=== PATIENT | female | born 1965 | race Hispanic/Latino ===

== ENCOUNTER 2025-08-03 12:09 | Emergency (ER) | payer OTHER ==
--- OUTSIDE RECORDS SUMMARY | 2025-08-03 12:13 | XMS REPORT | Continuity of Care Document ---
Author Name Unknown Address [address] [facility] [place] [address] [facility] [place] Address [address] [facility] [place] [address] Care Team Providers Care Chemic Mangler Name Role Phone Jv Campbell Attending Clinician Unavailable Jewels Tse Attending Clinician Unavailable Payers Payer Name Policy Type Policy Number Effective Date Expirati on Date Source [facility] Individual Exchange Benefit Plan [id number] 2024 00:00:00 2025 00:00:00 [facility] Problems Condition Name Condition Details Condition Category Status Onset Date Resolution Date Last Treatment Date Treating Clinician Comments Source Hemorrhoid s Hemorrhoid s Problem Active 12-18 00:00: 00 [facility] Atrophic vaginitis Atrophic Vaginitis Problem Active 12-18 00:00: 00 [facility] Hypothyroi dism Hypothyroi dism Problem Active 12-18 00:00: 00 [facility] Superficia l pain on intercours e Superficia l Pain on Intercours e Problem Active 12-18 00:00: 00 [facility] [id number] Overweight Problem Com [facility] [id number] Vitamin D deficiency Problem [facility] [id number] Acquired hypothyroi dism Problem [facility] [id number] Mixed hyperlipid emia Problem [facility] Social History Social Habit Start Date Stop Date Quantity Comments Source History of Tobacco Use [facility] Sex Assigned At [facility] Smoking Status Start Date Stop Date Source Never Smoker [facility] Medications Ordered Medication Name Filled Medication Name Start Date Stop Date Current Medication? Ordering Clinician Indication Dosage Frequency Signature (SIG) Comments Components Source Zepbound 2.5 mg/0.5 mL subcutaneou s solution 0.5 {ml}s by sub-q route. Zepbound 2.5 mg/0.5 mL subcutaneou s solution 0.5 {ml}s by sub-q route. 2 00:00: 00 No .5{ml} Zepbound 2.5 mg/0.5 mL subcutaneo us solution 0.5 {ml}s by sub-q route. [facility] Vitamin D3 125 mcg (5,000 unit) tablet 1 unit every day by oral route. Vitamin D3 125 mcg (5,000 unit) tablet 1 unit every day by oral route. 1 00:00: 00 No 1unit(s ) Q1D Vitamin D3 125 mcg (5,000 unit) tablet 1 unit every day by oral route. [facility] Levothyroxi ne Sodium 100 MCG Levothyroxi ne Sodium 100 MCG No QD Levothyrox ine Sodium 100 MCG Zepbound 10 MG/0.5ML Zepbound 10 MG/0.5ML No .5{ml} Zepbound 10 MG/0.5ML ondansetron HCl 8 mg tablet TAKE ONE (1) TABLET(S) BY MOUTH TWICE A DAY NEEDED FOR NAUSEA AND VOMITING. ondansetron HCl 8 mg tablet TAKE ONE (1) TABLET(S) BY MOUTH TWICE A DAY NEEDED FOR NAUSEA AND VOMITING. No ondansetro n HCl 8 mg tablet TAKE ONE (1) TABLET(S) BY MOUTH TWICE A DAY NEEDED FOR NAUSEA AND VOMITING. [facility] levothyroxi ne 112 mcg tablet levothyroxi ne 112 mcg tablet No levothyrox ine 112 mcg tablet [facility] Yuvafem 10 mcg vaginal tablet Insert 1 tablet twice a week by vaginal route for 28 days. Yuvafem 10 mcg vaginal tablet Insert 1 tablet twice a week by vaginal route for 28 days. No 1 Q3.5D Yuvafem 10 mcg vaginal tablet Insert 1 tablet twice a week by vaginal route for 28 days. [facility] Immunizations Ordered Immunization Name Filled Immunization Name Date Status Comments Source Boostrix (Tdap) Boostrix (Tdap) Unknown Completed [facility] Boostrix (Tdap) Boostrix (Tdap) Unknown Completed [facility] Tdap Tdap Unknown Completed [facility] ical Vital Signs Vital Name Observation Time Observation Value Comments S ilya height 2025-06-23 13:30:00 64.00 [in_i] Com [facility] weight 2025-06-23 13:30:00 148 [lb_av] Comm on [facility] bmi 2025-06-23 13:30:00 25.4 kg/m2 Comm n [facility] blood pressure systolic 2025-06-23 13:30:00 121 mm[Hg] [facility] blood pressure diastolic 2025-06-23 13:30:00 75 mm[Hg] [facility] height 2025-03-20 08:15:00 64.00 [in_i] Com [facility] weight 2025-03-20 08:15:00 148 [lb_av] Comm on [facility] bmi 2025-03-20 08:15:00 25.4 kg/m2 Commo n [facility] blood pressure systolic 2025-03-20 08:15:00 106 mm[Hg] Common [facility] blood pressure diastolic 2025-03-20 08:15:00 73 mm[Hg] [facility] Height 2025-01-30 00:00:00 63 [in_i] [facility] BMI (Body Mass Index) 2025-01-30 00:00:00 27.5 kg/m2 [facility] BP Systolic 2025-01-30 00:00:00 119 mm[Hg] [facility] Body Weight 2025-01-30 00:00:00 155 [lb_av] [facility] BP Diastolic 2025-01-30 00:00:00 82 mm[Hg] [facility] height 2024-12-02 08:00:00 64.00 [in_i] Com [facility] weight 2024-12-02 08:00:00 160 [lb_av] Comm on [facility] bmi 2024-12-02 08:00:00 27.46 kg/m2 Comm on [facility] blood pressure systolic 2024-12-02 08:00:00 115 mm[Hg] [facility] blood pressure diastolic 2024-12-02 08:00:00 78 mm[Hg] Common [facility] height 2024-09-01 08:15:00 64.00 [in_i] Com [facility] weight 2024-09-01 08:15:00 145 [lb_av] Comm on [facility] bmi 2024-09-01 08:15:00 24.89 kg/m2 Comm on [facility] blood pressure systolic 2024-09-01 08:15:00 123 mm[Hg] [facility] blood pressure diastolic 2024-09-01 08:15:00 75 mm[Hg] Common [facility] height 2024-04-29 10:10:00 64.00 [in_i] Com [facility] weight 2024-04-29 10:10:00 145 [lb_av] Comm on [facility] bmi 2024-04-29 10:10:00 24.89 kg/m2 Comm on [facility] blood pressure systolic 2024-04-29 10:10:00 110 mm[Hg] Common [facility] blood pressure diastolic 2024-04-29 10:10:00 76 mm[Hg] Common [facility] height 2024-04-29 10:10:00 64.00 [in_i] Com [facility] weight 2024-04-29 10:10:00 145 [lb_av] Comm on [facility] bmi 2024-04-29 10:10:00 24.89 kg/m2 Comm on [facility] blood pressure systolic 2024-04-29 10:10:00 110 mm[Hg] [facility] blood pressure diastolic 2024-04-29 10:10:00 76 mm[Hg] Common Sp[facility] Height 2024-04-04 00:00:00 63 [in_i] [facility] BP Systolic 2024-04-04 00:00:00 118 mm[Hg] [facility] BP Diastolic 2024-04-04 00:00:00 78 mm[Hg] [facility] Body Weight 2024-04-04 00:00:00 149.2 [lb_av] [facility] BMI (Body Mass Index) 2024-04-04 00:00:00 26.4 kg/m2 [facility] height 2024-01-25 08:00:00 64.00 [in_i] Com mon [facility] weight 2024-01-25 08:00:00 142.0 [lb_av] Co mmon [facility] temperature 2024-01-25 08:00:00 97.3 [degF] Com mon [facility] bmi 2024-01-25 08:00:00 24.37 kg/m2 Comm on [facility] oximetry 2024-01-25 08:00:00 99 % Commo n [facility] respiratory rate 2024-01-25 08:00:00 18 /min Common [facility] blood pressure systolic 2024-01-25 08:00:00 122 mm[Hg] [facility] blood pressure diastolic 2024-01-25 08:00:00 71 mm[Hg] [facility] Height 2023-12-18 00:00:00 63 [in_i] [facility] BMI (Body Mass Index) 2023-12-18 00:00:00 25 kg/m2 [facility] BP Diastolic 2023-12-18 00:00:00 77 mm[Hg] [facility] BP Systolic 2023-12-18 00:00:00 118 mm[Hg] [facility] Body Weight 2023-12-18 00:00:00 141.2 [lb_av] [facility] height 2023-11-30 14:00:00 64.00 [in_i] Com mon [facility] weight 2023-11-30 14:00:00 141.6 [lb_av] Co mmon [facility] temperature 2023-11-30 14:00:00 98.2 [degF] Com [facility] bmi 2023-11-30 14:00:00 24.3 kg/m2 Commo n [facility] oximetry 2023-11-30 14:00:00 100 % Commo n [facility] respiratory rate 2023-11-30 14:00:00 17 /min [facility] blood pressure systolic 2023-11-30 14:00:00 122 mm[Hg] [facility] blood pressure diastolic 2023-11-30 14:00:00 73 mm[Hg] [facility] Procedures Procedure Date / Time Performed Performing Clinicia n Source SCREENING DIGITAL BREAST TOMOSYNTHESIS BI 2025-01-30 00:00:00 [facility] MAMMO, screening, digital, bilateral 2023-12-18 00:00:00 [facility] Procedure on Back 2006-10-22 00:00:00 [facility] Encounters Start Date/Time End Date/Time Encounter Type Admission Type Attending Clinicians Care Facility Care Department Encounter ID Source 2024-11-14 14:16:[facility] [id number] [facility] 2024-08-28 13:27:00 [facility] [id number] [facility] 2024-03-27 15:43:00 [facility] [id number] [facility] 2024-03-14 17:07:00 Outpatient Jv Campbell [facility] [id number] [facility] 2024-01-09 14:23:00 Outpatient Jv Campbell [facility] [id number] [facility] 2023-11-30 13:10:01 Outpatient Jewels Tse [facility] [id number] [facility] 2025-06-23 00:00:00 2025-06-23 00:00:00 OFFICE VISIT ESTAB PT LEVEL 4 [facility] [id number] [facility] 2025-06-01 00:00:00 2025-06-01 00:00:00 (TEL) [facility] [id number] [facility] 2025-03-27 00:00:00 2025-03-27 00:00:00 (TEL) [facility] [id number] [facility] 2025-03-20 00:00:00 2025-03-20 00:00:00 OFFICE VISIT ESTAB PT LEVEL 4 [facility] [id number] [facility] 2025-01-30 00:00:00 2025-01-30 00:00:00 DONALDO Alejandro: [facility] Deedee Rios, [address], [place] [address] , Ph. [facility] - GC_GCBZW_[place] [facility]* [id number] [facility] 2025-01-27 00:00:00 2025-01-27 00:00:00 (WEB) STLMLC ST[facility]C [id number] [facility] 2025-01-27 00:00:00 2025-01-27 00:00:00 (WEB) STLMLC ST[facility]C [id number] [facility] 2025-01-27 00:00:00 2025-01-27 00:00:00 (WEB) STLMLC STL[facility]C [id number] [facility] 2024-12-22 00:00:00 2024-12-22 00:00:00 (WEB) STLMLC STL[facility]C [id number] [facility] 2024-12-02 00:00:00 2024-12-02 00:00:00 OFFICE VISIT ESTAB PT LEVEL 4 [facility] ST[facility]C [id number] [facility] 2024-11-14 00:00:00 2024-11-14 00:00:00 (WEB) STLMLC STLMLC [id number] [facility] 2024-09-01 00:00:00 2024-09-01 00:00:00 OFFICE VISIT ESTAB PT LEVEL 4 [facility] ST[facility]C [id number] [facility] 2024-05-12 00:00:00 2024-05-12 00:00:00 (WEB) STLMLC STLMLC [id number] [facility] 2024-04-29 00:00:00 2024-04-29 00:00:00 OFFICE VISIT ESTAB PT LEVEL 3 [facility] ST[facility]C [id number] [facility] 2024-04-22 00:00:00 2024-04-22 00:00:00 (WEB) STLMLC STLMLC [id number] [facility] 2024-04-17 00:00:00 2024-04-17 00:00:00 (TEL) STLMLC STLMLC [id number] [facility] 2024-04-04 00:00:00 2024-04-04 00:00:00 DONALDO Alejandro: Araseli Rios, [address], [place] [address] , Ph. [facility] - GC_GCBZW_Priya harvey Cash* [id number] [facility] 2024-04-04 00:00:00 2024-04-04 00:00:00 (WEB) STLMLC STLMLC [id number] [facility] 2024-04-03 00:00:00 2024-04-03 00:00:00 (WEB) STLMLC STL[facility]C [id number] [facility] 2024-03-26 00:00:00 2024-03-26 00:00:00 (TEL) STLMLC STLMLC [id number] [facility] 2024-01-25 00:00:00 2024-01-25 00:00:00 (APPLICATION SPECIALIST) New Patient STLMLC STLMLC [id number] [facility] 2023-12-18 00:00:00 2023-12-18 00:00:00 Emmy Coffey, CONVEYOR TECHNICIAN: [address] Rios, [address] [address] , Ph. [facility] - [facility]GCBZ[facility]* [id number] [facility] 2023-12-18 00:00:00 2023-12-18 00:00:00 (WEB) STLC STLC [id number] [facility] 2023-11-30 00:00:00 2023-11-30 00:00:00 (TEL) STLC STLC [id number] [facility] 2023-11-30 00:00:00 2023-11-30 00:00:00 OFFICE VISIT NEW PT LEVEL 3 STLC STLC [id number] [facility] Results Test Description Test Time Test Comments Results Result Co mments Source THYROID II PROFILE (TU, T4, T7, TSH)2024-08-22 00:00:00* Test Item Value Reference Range Interpretation Comme nts CORRECTED T4 (FTI) (test code = 69713-5) 7.2 UG/DL See_Comment [Automated messa ge] The system which generated this result transmitted reference range: 4.2-11.6 UG/DL. The reference range was not used to interpret this result as normal/abnormal. T-UPTAKE (test code = 20713-4) 30.2 % See_Comment [Automated messa ge] The system which generated this result transmitted reference range: 24.3-39.0 %. The reference range was not used to interpret this result as normal/abnormal. T4 (THYROXINE) (test code = 3026-2) 7.9 UG/DL See_Comment [Automated messa ge] The system which generated this result transmitted reference range: 4.5-10.5 UG/DL. The reference range was not used to interpret this result as normal/abnormal. THYROX. BIND. CAPAC. (test code = 01708-5) 1.1 0.8-1.3 TSH, THIRD GENERATION (test code = 34247-1) 2.180 UIU/ML See_Comment [Automated messa ge] The system which generated this result transmitted reference range: 0.400-4.100 UIU/ML. The reference range was not used to interpret this result as normal/abnormal. CBC W/AUTO [id number] 00:00:00* Test Item Value Reference Range Interpretation Comme nts NUCLEATED RBCS (test code = 16153-7) 0.0 /100 WBC'S See_Comment [Automated messa ge] The system which generated this result transmitted reference range: 0.0 /100 WBC'S. The reference range was not used to interpret this result as normal/abnormal. ABSOLUTE EOSINOPHILS (test code = 59880-3) 0.11 K/UL See_Comment [Automated messa ge] The system which generated this result transmitted reference range: 0.00-0.50 K/UL. The reference range was not used to interpret this result as normal/abnormal. ABSOLUTE LYMPHOCYTES (test code = 56835-7) 1.53 K/UL See_Comment [Automated messa ge] The system which generated this result transmitted reference range: 1.00-4.00 K/UL. The reference range was not used to interpret this result as normal/abnormal. ABSOLUTE MONOCYTES (test code = 04565-4) 0.30 K/UL See_Comment [Automated messa ge] The system which generated this result transmitted reference range: 0.20-1.00 K/UL. The reference range was not used to interpret this result as normal/abnormal. ABSOLUTE NEUTROPHILS (test code = 33061-8) 2.99 K/UL See_Comment [Automated messa ge] The system which generated this result transmitted reference range: 1.50-7.50 K/UL. The reference range was not used to interpret this result as normal/abnormal. BASOPHILS (test code = 55401-8) 1.2 % EOSINOPHILS (test code = 62728-9) 2.2 % HEMATOCRIT (test code = 91994-2) 36.3 % See_Comment [Automated messa ge] The system which generated this result transmitted reference range: 34.0-45.0 %. The reference range was not used to interpret this result as normal/abnormal. HEMOGLOBIN (test code = 718-7) 12.3 G/DL See_Comment [Automated messa ge] The system which generated this result transmitted reference range: 11.5-15.5 G/DL. The reference range was not used to interpret this result as normal/abnormal. LYMPHOCYTES (test code = 18954-5) 30.6 % MCH (test code = 89711-5) 31.9 PG See_Comment [Automated messa ge] The system which generated this result transmitted reference range: 25.0-33.0 PG. The reference range was not used to interpret this result as normal/abnormal. MCHC (test code = 02517-5) 33.9 G/DL See_Comment [Automated messa ge] The system which generated this result transmitted reference range: 31.0-36.0 G/DL. The reference range was not used to interpret this result as normal/abnormal. MCV (test code = 61275-7) 94.0 fL See_Comment [Automated messa ge] The system which generated this result transmitted reference range: 80.0-99.0 fL. The reference range was not used to interpret this result as normal/abnormal. MONOCYTES (test code = 60175-1) 6.0 % NEUTROPHILS (test code = 44096-4) 59.8 % PLATELET COUNT (test code = 54373-1) 217 K/UL See_Comment [Automated messa ge] The system which generated this result transmitted reference range: 130-400 K/UL. The reference range was not used to interpret this result as normal/abnormal. RBC (test code = 63199-3) 3.86 M/UL See_Comment [Automated messa ge] The system which generated this result transmitted reference range: 3.80-5.40 M/UL. The reference range was not used to interpret this result as normal/abnormal. RDW (test code = 64273-3) 13.5 % See_Comment [Automated [employer] The system which generated this result transmitted reference range: 11.5-15.0 %. The reference range was not used to interpret this result as normal/abnormal. WBC (test code = 97687-7) 5.0 K/UL See_Comment [Automated [employer]] The system which generated this result transmitted reference range: 3.5-11.0 K/UL. The reference range was not used to interpret this result as normal/abnormal.
--- NOTE | 2025-08-03 12:52 | RAD REPORT ---
EXAM: CT brain without contrast HISTORY: HEADACHE COMPARISON: None TECHNIQUE: Multiple contiguous axial images were obtained and a CT of the brain without contrast. Sag ittal and coronal reformats were performed. One or more of the following dose reduction techniques were used: Automated exposure control, adjust ment of the mA and/or kV according to patient size, and/or iterative reconstruction. FINDINGS: No evidence of hydrocephalus, intracranial hemorrhage, or extra-axial fluid collection. The brain is normal in morphology. No evidence of midline shift or areas of brain edema. The calvarium is intact. The visualized paranasal sinuses and mastoid air cells are essentially clear . Small frontal scalp hematoma. IMPRESSION: No evidence of acute intracranial abnormality.
--- NOTE | 2025-08-03 13:37 | ER ---
Nurse's Notes [facility] Name: Lanny Noriega Age: 60 yrs Sex: Female : 1965 Arrival Date: 08/03/2025 Time: 12:09 Bed IW1 Private MD: Diagnosis: Unspecified injury of head, initial encounter Presentation: 08/03 12:22 Chief complaint: Patient states: Sunday night patient had been drinking and lost her me1 balance and fell, hitting her forehead on the concrete. No LOC. No blood thinners. Abrasion noted to right forehead, Swelling and bruising to right eye. c/o pain to right wrist. Reports slight headache. Coronavirus screen: At this time, the client does not indicate any symptoms associated with coronavirus-19. Ebola Screen: No symptoms or risks identified at this time. Mechanism of Injury: resulted from a fall, while walking, impacting a hard surface, hitting concrete. Initial Sepsis Screen: Does the patient meet any 2 criteria? No. Patient's initial sepsis screen is negative. Does the patient have a suspected source of infection? No. Patient's initial sepsis screen is negative. Risk Assessment: Do you want to hurt yourself or someone else? Patient reports no desire to harm self or others. 12:22 Method Of Arrival: Amb[place] [facility] 12:22 Acuity: BRYANNA 3 me1 Historical: - Allergies: 12:25 No Known Allergies; me1 - PMHx: 12:25 Hypothyroidism; me1 - PSHx: 12:25 ectopic ; me1 - Immunization history:: Adult Immunizations up to date. - Infectious Disease History:: Denies. - Social history:: Smoking status: Patient denies any tobacco usage or history of. Vital Signs: 12:22 BP 113 / 74; Pulse 88; Resp 16; Temp 98.2; Pulse Ox 100% ; Weight 68.04 kg; Height 5 me1 ft. 3 in. ; Pain 3/10; 12:22 Body Mass Index 26.57 (68.04 kg, 160.02 cm) me1 12:22 Pain Scale: Adult me1 Snowflake Coma Score: 12:22 Eye Response: spontaneous(4). Motor Response: obeys commands(6). Verbal Response: me1 oriented(5). Total: 15. 13:35 Eye Response: spontaneous(4). Motor Response: obeys commands(6). Verbal Response: kb oriented(5). Total: 15. ED Course: 12:12 Patient arrived in ED. im 12:18 Grazyna Cash FNP-C is PHCP. kb 12:18 Frankie Esquivel MD is Attending Physician. kb 12:25 Triage completed. me1 12:25 Arm band placed on Patient placed in waiting room. me1 12:40 CT Head Brain wo Cont In Process Unspecified. EDMS Administered Medications: No medications were administered Outcome: 13:36 Discharge ordered by MD. kb 13:43 Patient left the ED. kb Signatures: Dispatcher [employer] EDMS Grazyna Cash FNP-C FNP-Ckb Mendoza, Itzel Yumi Dillard RN RN me1 Corrections: (The following items were deleted from the chart) 12:26 12:25 PMHx: None; me1 me1
--- NOTE | 2025-08-03 13:37 | EDPHYS ---
Physician Documentation [facility] Name: Lanny Noriega Age: 60 yrs Sex: Female : 1965 Arrival Date: 08/03/2025 Time: 12:09 Bed IW1 Private MD: ED Physician Frankie Esquivel HPI: 08/03 13:36 This 60 yrs old Female presents to ER via Ambulatory with complaints of Head kb Injury-Adult, Fall Injury. 13:36 Patient is a 60-year-old female who presents for head injury that occurred on Sunday kb night. States she was out having drinks, lost her balance and fell hitting her forehead on the concrete. Denies LOC. States that she has had some headache and dizziness since then. Wanted to come to speak to everything was okay.. Historical: - Allergies: 12:25 No Known Allergies; me1 - PMHx: 12:25 Hypothyroidism; me1 - PSHx: 12:25 ectopic ; me1 - Immunization history:: Adult Immunizations up to date. - Infectious Disease History:: Denies. - Social history:: Smoking status: Patient denies any tobacco usage or history of. ROS: 13:35 Constitutional: As per HPI kb Exam: 13:35 Constitutional: This is a well developed, well nourished patient who is awake, alert, kb and in no acute distress. Eyes: Pupils equal round and reactive to light, extra-ocular motions intact. Lids and lashes normal. Conjunctiva and sclera are non-icteric and not injected. Cornea within normal limits. Periorbital areas with no swelling, redness, or edema. ENT: Moist Mucous membranes Cardiovascular: Regular rate Respiratory: Respirations even and unlabored. No increased work of breathing. Talking in full sentences Skin: Warm, dry with normal turgor. Normal color. MS/ Extremity: Pulses equal, no cyanosis. Neurovascular intact. Full, normal range of motion. Neuro: Awake and alert, GCS 15, oriented to person, place, time, and situation. 13:35 Head/face: Noted is no obvious of injury or deformity except abrasion(s), that are moderate, of the forehead, Vital Signs: 12:22 BP 113 / 74; Pulse 88; Resp 16; Temp 98.2; Pulse Ox 100% ; Weight 68.04 kg; Height 5 me1 ft. 3 in. ; Pain 3/10; 12:22 Body Mass Index 26.57 (68.04 kg, 160.02 cm) me1 12:22 Pain Scale: Adult me1 Lisa Coma Score: 12:22 Eye Response: spontaneous(4). Motor Response: obeys commands(6). Verbal Response: me1 oriented(5). Total: 15. 13:35 Eye Response: spontaneous(4). Motor Response: obeys commands(6). Verbal Response: kb oriented(5). Total: 15. MDM: 12:19 Medical Screening Exam initiated kb 13:35 Differential diagnosis: Contusion of Hematoma on Intracranial bleed- abrasion. Data kb reviewed: vital signs, nurses notes. Counseling: I had a detailed discussion with the patient and/or guardian regarding the historical points, exam findings, and any diagnostic results supporting the discharge/admit diagnosis, radiology results, the need for outpatient follow up, a family practitioner, to return to the emergency department if symptoms worsen or persist or if there are any questions or concerns that arise at home. 08/03 12:25 Order name: CT Head Brain wo Cont; Complete Time: 13:13 kb Administered Medications: No medications were administered Disposition: 17:49 Co-signature as Attending Physician, Frankie Esquivel MD I reviewed the patient's care rn provided by the Advanced Practice Provider and agree with the diagnosis and treatment plan. Disposition Summary: 08/03/25 13:36 Discharge Ordered Notes: Location: Home kb Condition: Stable kb Diagnosis - Unspecified injury of head, initial encounter kb Followup: kb - With: Emergency Department - When: As needed - Reason: Worsening of condition Followup: kb - With: Private Physician - When: 2 - 3 days - Reason: Recheck today's complaints, Continuance of care, Re-evaluation by your physician Discharge Instructions: - Discharge Summary Sheet kb - Concussion, Adult, [id number] kb - Head Injury, Adult, [id number] kb Forms: - Medication Reconciliation Form kb - Antibiotic Education kb - Prescription Opioid Use kb - Patient Portal Instructions kb - Leadership Thank You Letter kb Signatures: Dispatcher [employer] Grazyna Aceves, KELSIEC LEARN TO SWIM INSTRUCTOR-Frankie Villeda MD MD rn Eddleman, Michelle, RN RN me1 Corrections: (The following items were deleted from the chart) : 12:25 Head Brain Wo [id number] ordered. EDMS EDMS 12:25 PMHx: None; me1 me1
[2025-08-03 16:03] VITALS: BP 113/74; TEMP 98.2; O2SAT 100
== END 2025-08-03 13:43 | disposition home or self-care (01) ==
LOC: ER 12:09
DX: S09.90XA Unspecified injury of head, initial encounter (principal); E03.9 Hypothyroidism, unspecified; W18.39XA Other fall on same level, initial encounter; Y93.89 Activity, other specified; Y92.89 Other specified places as the place of occurrence of the external cause
CPT/HCPCS: 70450; 99281